=== PATIENT | female | born 1960 | race Caucasian/White ===

== ENCOUNTER 2021-11-07 06:00 | Day surgery (SDC) | payer OTHER ==
[2021-11-07] MEDS ORDERED: Lactated Ringers 1,000 ML IV SCH (06:30)
[2021-11-07] MEDS ORDERED: Xylocaine-Mpf 2% 5 Ml Vial ONE (07:54)
[2021-11-07] MEDS ORDERED: DIPRIVAN 200 MG/20 ML IV ONE (07:54)
[2021-11-07] MEDS ORDERED: ATROPINE SULFATE 1MG ONE (08:16)
[2021-11-07 09:00] VITALS: BP 162/96; PULSE 91; O2SAT 95
--- NOTE | 2021-11-07 11:00 | OP ---
SURGERY DATE/TIME: 11/07/2021 0754 PREOPERATIVE DIAGNOSIS: Screening exam. POSTOPERATIVE DIAGNOSIS: Normal colon. PROCEDURE: Colonoscopy. SURGEON: Dr. Earnest Kirkland. ANESTHESIA: MAC. Medications given by anesthesia department. HISTORY: The patient is a 61-year-old white female presenting now for her first screening colonoscopy. The patient was appraised of the risks of the procedure including the risk of perforation, phlebitis, untoward reaction to medication, bleeding and missed lesions. The patient verbalized her understanding and desired to have the procedure performed. DESCRIPTION OF PROCEDURE: The patient was given the medications by the anesthesia department. She had continuous pulse oximetry, ECG monitoring, intermittent blood pressure monitoring during the examination. She was placed in the left lateral decubitus position. A digital rectal examination was performed and revealed normal anal sphincter tone and no masses. The flexible Olympus pediatric colonoscope was used to intubate the rectum. A view of the colon was developed sequentially to the cecum. Upon insertion and withdrawal, including a retroflex view in the rectum, no mucosal lesions were encountered. The scope was removed from the patient who tolerated the procedure well and was sent back to OP recovery in good condition. The prep was noted to be good.
== END 2021-11-07 09:15 | disposition home or self-care (01) ==
LOC: SDC 06:00
PROVIDERS: ATTEND Family Medicine
DX: Z12.11 Encounter for screening for malignant neoplasm of colon (principal); E11.9 Type 2 diabetes mellitus without complications
CPT/HCPCS: 82947; J0461; J2704

== ENCOUNTER 2022-10-19 18:16 | Emergency (ER) | payer OTHER ==
[2022-10-19 20:07] VITALS: BP 169/97; PULSE 81; RESP 16; TEMP 98.1; O2SAT 96
[2022-10-19] MEDS ORDERED: NORCO 5/325 MG PO ONE (20:31)
[2022-10-19] MEDS ORDERED: NORCO 5/325 MG ONE (20:33)
--- NOTE | 2022-10-19 21:38 | ERPHSYRPT ---
- History of Present Illness Time Seen by Provider: 10/19/22 18:31 Source: patient Exam Limitations: no limitations Patient Subjective Stated Complaint: pt states she twisted her ankle going down stairs and has pain in her rt foot Triage Nursing Assessment: pt alert and oriented. answers questions approp. pt back to room per wheelchair and transfers to stretcher with assistof 1. bruising and swelling noted to rt foot. cap refill and pedal pulse wnl Physician History: 62 years old female with history of hypertension, hyperlipidemia, diabetes mellitus presented in the ER with chief complaint of right foot and ankle pain and swelling after she twisted while going downstairs. Complaining of moderate to severe sharp pain, difficulty weightbearing. Reports increasing swelling especially on the lateral aspect of the foot without any tingling or numbness in the toes. No injury anywhere else. Allergies/Adverse Reactions: No Known Drug Allergies Allergy (Verified 10/19/22 20:07) Home Medications: Amlodipine Besylate/Benazepril [Lotrel 10-40 mg Capsule] 10 - 40 mg PO UD 11/01/21 [History] Aspirin EC 81 mg [Ecotrin 81 mg] 81 mg PO UD 11/01/21 [History] Glimepiride 2 mg [Amaryl 2 MG] 2 mg PO UD 11/01/21 [History] Meloxicam 15 mg [Meloxicam 15 MG] 15 mg PO UD 11/01/21 [History] Simvastatin 10 mg [Zocor 10MG] 10 mg PO DAILY 11/01/21 [History] Tizanidine HCl 4 mg [Zanaflex 4 MG] 4 mg PO UD 11/01/21 [History] Hx Tetanus, Diphtheria Vaccination/Date Given: No (unsure) Hx Influenza Vaccination/Date Given: No Hx Pneumococcal Vaccination/Date Given: No Immunizations Up to Date: No Travel Risk - International Travel Have you traveled outside of the country in past 3 weeks: No - Coronavirus Screening Are you exhibiting any of the following symptoms?: No Close contact with a COVID-19 positive Pt in past 14-21 Days: No - Vaccine Status Have you recieved a Covid-19 vaccination: No - Review of Systems Constitutional: No Symptoms Eyes: No Symptoms Ears, Nose, & Throat: No Symptoms Respiratory: No Symptoms Cardiac: No Symptoms Abdominal/Gastrointestinal: No Symptoms Genitourinary Symptoms: No Symptoms Musculoskeletal: Fall, Injury, Joint Pain Skin: No Symptoms Neurological: No Symptoms Immunological/Allergic: No Symptoms - Past Medical History Pertinent Past Medical History: Yes Neurological History: No Pertinent History ENT History: No Pertinent History Cardiac History: Hypertension Respiratory History: No Pertinent History Endocrine Medical History: Diabetes Type II Musculoskeletal History: No Pertinent History GI Medical History: Irritable Bowel History: No Pertinent History Psycho-Social History: No Pertinent History Female Reproductive Disorders: No Pertinent History Other Medical History: pt reports she had a cardiac work up in 2005 and no heart issue found has not been back since. - Past Surgical History Past Surgical History: Yes Neuro Surgical History: No Pertinent History Cardiac: No Pertinent History Respiratory: No Pertinent History Gastrointestinal: No Pertinent History Genitourinary: No Pertinent History Musculoskeletal: No Pertinent History Female Surgical History: Hysterectomy Other Surgical History: eye reconstruction - Social History Smoking Status: Current every day smoker How long have you smoked: 45yrs Exposure to second hand smoke: No Drug Use: none Patient Lives Alone: No - Nursing Vital Signs Nursing Vital Signs: Initial Vital Signs Temperature 98.1 F 10/19/22 19:59 Pulse Rate 81 10/19/22 19:59 Respiratory Rate 16 10/19/22 19:59 Blood Pressure 169/97 10/19/22 19:59 O2 Sat by Pulse Oximetry 96 10/19/22 19:59 Pain Scale Pain Intensity 10 - Physical Exam General Appearance: no apparent distress, alert Eyes, Ears, Nose, Throat Exam: normal ENT inspection Neck Exam: normal inspection, non-tender, supple, full range of motion Cardiovascular/Respiratory Exam: chest non-tender, normal breath sounds, regular rate/rhythm Gastrointestinal/Abdominal Exam: non-tender, soft, no organomegaly Back Exam: normal inspection, normal range of motion Ankle Exam: right ankle: bone tenderness (Lateral malleolus), limited range of motion, pain, soft tissue tenderness, swelling, left ankle: non-tender, normal i nspection, normal range of motion, no evidence of injury Foot Exam: right foot: bone tenderness (Mid to distal lateral foot), pain, soft tissue tenderness, swelling, left foot: non-tender, normal inspection, normal range of motion, no evidence of injury Neuro/Tendon Exam: normal sensation, normal motor functions, normal tendon functions Mental Status Exam: alert, oriented x 3, cooperative Skin Exam: normal color SpO2 Interpretation: normal SpO2: 96 O2 Delivery: Room Air Ordered Tests: Active Orders 24 hr Category Date Time Status ANKLE (3 VIEWS) Stat Exams 10/19/22 20:25 Taken FOOT (MINIMUM 3 VIEWS) Stat Exams 10/19/22 20:25 Taken Medication Summary Discontinued Medications Generic Name Dose Route Start Last Admin Trade Name Brennan PRN Reason Stop Dose Admin Hydrocodone Bitart/Acetaminophen 2 tab 10/19/22 20:31 10/19/22 20:39 Hydrocodone/Apap 5/325 1 Tab Tablet PO 10/19/22 20:32 2 tab STAT ONE Administration Hydrocodone Bitart/Acetaminophen Confirm 10/19/22 20:33 Hydrocodone/Apap 5/325 1 Tab Tablet Administered 10/19/22 20:34 Dose 2 tab .ROUTE .STK-MED ONE - Progress Progress: improved, pain not gone completely, re-examined Progress Note: 10/19/22 21:35 62 years old female with history of hypertension, hyperlipidemia, diabetes mellitus presented in the ER with chief complaint of right foot and ankle pain and swelling after she twisted while going downstairs. Complaining of moderate to severe sharp pain, difficulty weightbearing. Reports increasing swelling especially on the lateral aspect of the foot without any tingling or numbness in the toes. No injury anywhere else. Patient has swollen right lateral malleolus and right lateral half of foot with bruising. Marked tenderness on the foot. Given [place] for symptomatic relief. X-rays showed fracture of fourth and fifth metatarsal reviewed by me, official report is pending. Placed in a posterior splint, recommended off weightbearing and outpatient podiatry follow-up. Counseled pt/family regarding: diagnosis, need for follow-up, rad results Medical Desision Making - Diagnostic Testing Diagnostic test were ordered, analyzed, and reviewed by me: Yes Radiological Interpretation: Interpreted by me, Reviewed by me - Risk of complications The pt has a mod risk of morbidity or mortality based on: Need for prescription drug management - Departure Departure Disposition: Home Clinical Impression: Foot fracture, right Condition: Stable Critical Care Time: No Referrals: DANAE GIBSON MD [Primary Care Provider] - Follow up/PCP as directed YEVGENIY EDWARDS DPM [ACTIVE STAFF] - Follow up/PCP as directed (Tomorrow for reevaluation) Instructions: Foot Fracture (DC) Additional Instructions: Intermittent ice application. Keep it elevated. Take pain medications as needed. Follow-up with podiatry for reevaluation in 1 to 2 days. Return to ER for any worsening., Bluish discoloration of toes numbness or tingling in the toes etc. Prescriptions: Hydrocodone/Acetaminophen [Hydrocodone-Acetamin 5-325 mg] 1 tab PO Q6HPRN PRN 3 Days #12 tablet MDD 4 PRN Reason: Pain
--- NOTE | 2022-10-20 09:15 | XRAY ---
Indication: Pain following fall. Comparison: None 3 view right ankle demonstrates osteopenia. No other bony, articular, or soft tissue abnormalities. Foot reported separately.
--- NOTE | 2022-10-20 09:15 | XRAY ---
Indication: Pain and swelling following fall. Comparison: None 3 nonweightbearing views right foot demonstrates minimally displaced oblique fractures distal shafts 4th/5th metatarsals with soft tissue swelling. Elsewhere osteopenia and tiny navicular/cuboid accessory ossicles.
== END 2022-10-19 21:50 | disposition home or self-care (01) ==
LOC: ED 18:16
DX: S92.341A Displaced fracture of fourth metatarsal bone, right foot, initial encounter for closed fracture (principal); S92.351A Displaced fracture of fifth metatarsal bone, right foot, initial encounter for closed fracture; X50.0XXA Overexertion from strenuous movement or load, initial encounter; I10 Essential (primary) hypertension; E78.5 Hyperlipidemia, unspecified; E11.9 Type 2 diabetes mellitus without complications; Z79.84 Long term (current) use of oral hypoglycemic drugs; Z79.891 Long term (current) use of opiate analgesic; Z79.899 Other long term (current) drug therapy; Z28.310 Unvaccinated for COVID-19; Z72.0 Tobacco use
CPT/HCPCS: 73610; 73630; 99283; A9270-GY

== ENCOUNTER → 2022-10-27 | Day surgery (SDC) | payer OTHER ==
[~2022-10-27] MED LIST: CEFAZOLIN 2 GM-D5W BAG** 2 GM/50 ML ML IV SCH; DEXMEDETOMIDINE 80 MCG/20ML-NS IV ONE; DIPRIVAN 200 MG/20 ML IV ONE; Lactated Ringers 1,000 ML IV ONE; Lactated Ringers 1,000 ML IV SCH; Marcaine Mpf 0.5% Vial 30 Ml ONE; SUBLIMAZE 100 MCG/2 ML ONE; Versed 2 MG/2 ML Injection ONE; Xylocaine 1% Vial 30 ML PF IJ ONE
[2022-10-27 06:55] VITALS: RESP 18
[2022-10-27 06:56] LABS: Absolute Neutrophil Ct (ANC) 7.32 x10^3/uL (1.4-6.9); BASOPHIL % 0.6 % (0.0-0.4); Basophil (Absolute #) 0.07 x10^3/uL (0-0.4); Eosinophil (Absolute #) 0.23 x10^3/uL (0-0.5); Hematocrit 44.2 % (35-47); Hemoglobin 14.5 g/dL (12.0-16.0); IMMATURE GRAN # 0.06 x10^3u/L (0.00-0.03); IMMATURE GRAN % 0.5 % (0.00-0.4); Lymphocyte (Absolute #) 2.85 x10^3/uL (1.0-4.6); Lymphocytes % 25.4 % (24.0-44.0); Mean Cell Volume 95.3 fL (78-100); Mean Corpuscular Hemoglobin 31.3 pg (26-32); Mean Corpuscular Hgb Concent. 32.8 g/dL (32-36); Monocytes % 6.2 % (0.0-12.0); Neutrophil % 65.3 % (36.0-66.0); PROTIME 10.9 SECONDS (9.4-12.5); PTT 28.6 SECONDS (25.1-36.5); Platelet Count 351 x10^3/uL (150-450); Red Blood Count 4.64 x10^6/uL (4.1-5.4); Red Cell Distribution Width 13.6 % (11.5-14.0); White Blood Count 11.2 x10^3/uL (4.0-10.5)
[2022-10-27 07:45] LABS: ALBUMIN 4.5 g/dL (3.5-5.0); ALKALINE PHOSPHATASE 103 U/L (38-126); ANION GAP 16.1 MEQ/L (5-15); BLOOD UREA NITROGEN 9 mg/dL (7-17); CHLORIDE 105 mmol/L (98-107); Calcium 9.3 mg/dL (8.4-10.2); Carbon Dioxide 26 mmol/L (22-30); EST GLOMERULAR FILTRATION RATE > 60.0 ML/MIN; Glucose 114 mg/dL (74-106); Potassium 3.8 mmol/L (3.5-5.1); SGOT/AST 49 U/L (14-36); SGPT/ALT 48 U/L (0-35); SODIUM 144 mmol/L (137-145); Total Protein 7.6 g/dL (6.3-8.2)
--- NOTE | 2022-10-27 13:53 | XRAY ---
Indication: Right 4th/5th metatarsal ORIF. Intraoperative fluoroscopy provided for 5 minutes 22 seconds. 17 digital spot images submitted for interpretation ultimately demonstrates fixation plate/6 screws fixating 4th metatarsal shaft fracture and 3 screws fixating 5th metatarsal shaft fracture. Correlate with intraoperative findings/report.
--- NOTE | 2022-10-27 14:29 | XRAY ---
5 minutes and 22 seconds of fluoroscopy was used in surgery for a right 4th and 5th metatarsal ORIF.
[2022-10-27 15:21] VITALS: BP 130/69; PULSE 64; TEMP 97; O2SAT 97
--- NOTE | 2022-10-31 09:02 | OP ---
SURGERY DATE: 10/27/2022 SURGERY TIME: 1100 PREOPERATIVE DIAGNOSIS: 1. DISPLACED METATARSAL FRACTURES OF METATARSAL 4 AND 5 OF THE RIGHT FOOT. 2. RIGHT FOOT PAIN. 3. INSTABILITY WITH AMBULATION. POSTOPERATIVE DIAGNOSIS: 1. DISPLACED METATARSAL FRACTURES OF METATARSAL 4 AND 5 OF THE RIGHT FOOT. 2. RIGHT FOOT PAIN. 3. INSTABILITY WITH AMBULATION. PROCEDURE: 1. Open reduction internal fixation of the 4th and 5th metatarsals. SURGEON: Deepak Bolaños D.P.M. TOOL PLANER SET UP OPERATOR: None. ANESTHESIA: MAC with an intraoperative local block. HEMOSTASIS: An ankle tourniquet set to 250 mm Hg for approximately 83 total tourniquet minutes. ESTIMATED BLOOD LOSS: . MATERIALS: 2.5 Y plate with a 2.0 X 12 interfrag and a 2.5 X 14, 2.0 X 14, and 2.0 X 14 headed partially threaded screws for the 5th metatarsal Lauryn; 4-0 Monocryl; 2 suture guards; and 3-0 Nylon. INJECTIBLES: 40 cc of a 1:1 mixture of 1% Lidocaine plain and 0.5% Bupivacaine plain injected in an ankle block type fashion preoperatively. INDICATIONS: Brittney is a very pleasant 62 year-old female who presented to the orthopedic nurse practitioners office on Sunday of with some concerns of fracture. X-rays were taken demonstrating significant comminution of the diaphysis up into the distal metaphysis as well as a displaced metatarsal head at least of the 4th metatarsal of the right foot. Patient indicated that she went to weight-bear, she felt significantly unstable with weight-bearing. As a result, there was some degree of sagittal plane displacement as well as a gap of approximately 6 mm at its widest margins of the distal diaphysis. Options were discussed with the patient in regards to protection for healing. At this time, all risks, complications, and benefits surgical and conservative were discussed and patient agrees to proceed with surgical intervention due to the displacement and the instability with gait that she experienced when attempting to bear weight. As a result, patient understands that the risks in her case given that she is a diabetic albeit controlled and a cigarette smoker is possibly delayed wound healing; delayed bone healing; possible non-union; and possible need for surgical intervention at a later date. Nonspecific to this case, we also discussed the possibility of infection; hematoma; seroma; possibility of nerve damage as a result of the location where the incisions are to be placed as well as the possibility of need for removal of said hardware at a later date. No guarantees were provided as to the outcome of surgical intervention. The patient understands all this and wishes to proceed. Plenty of time was allowed for the patient to ask questions to their apparent satisfaction. From that standpoint, we decided to proceed. OPERATIVE SUMMARY: The patient was brought in to the operating room and placed on the operating room table in the supine position. At this time, MAC anesthesia care was administered until the patient was sedated. The right lower extremity was prepped and draped in the typical sterile fashion and lowered onto the surgical field. At this time, the ankle block was provided and the tourniquet was inflated to 250 mm Hg after [place] the right foot. Following this, a linear incision was carried between the 4th and 5th metatarsals being careful not to damage any neurovascular structures. Blunt dissection was carried down to the level of the 4th metatarsal. Comminution was identified at the 4th metatarsal which was apparently worse than what was imaged initially. From that standpoint, a spanning plate was planned. We spanned the fracture utilizing a 2.5 Y plate having cut down the tines to fit to the patient's specific anatomy and bending the plate into the appropriate orientation. From that standpoint, distal head was fixated and then proximal screws were placed until adequate amount of fixation was performed to hold the fracture site in the appropriate position. As a result, the length was assessed utilizing the contralateral foot to see the patient's typical anatomy and effort was utilized to restore identical metatarsal parabolas. From that standpoint, the 4th metatarsal was fixated and deemed to be in an adequate position with light contact of the bone for adequate healing. From that standpoint, attention was turned to the 5th metatarsal where pointed reduction forceps was utilized to close down the fracture percutaneously. Following this, 3 screws consisting of a 2.5 X 14, a 2.0 X 14, and a 2.0 X 14 headed partially threaded screw were introduced in a perpendicular orientation to the fracture site given the spiral orientation of the fracture. From that standpoint, fluoroscopic images were taken in an AP, oblique, and lateral orientation and deemed to be adequate. The 5th metatarsal head did seem to have some degree of displacement. However, this was easily corrected through closed reduction and was seemingly stable on a lateral view respective to the remainder of the metatarsal. Plating was not performed to the 5th metatarsal. From that standpoint, copious amounts of sterile saline were utilized to flush the surgical site. 4-0 Monocryl was utilized to coapt the subcutaneous edges of the skin. 3-0 Nylon was then utilized to coapt the skin edges in an everted type fashion with a horizontal mattress. Suture guards were then introduced utilizing 2-0 Nylon taking tension off of the surgical site secondary to the swelling. The patient then had a dressing consisting of iodine, Adaptic, 4 X 4, Kerlix, and a well-padded posterior splint with sugar tongue to the right lower extremity. The patient was then reversed from anesthesia and returned to the postoperative anesthesia care unit with vital signs stable and vascular status intact. The patient handled the anesthesia as well as the procedure without significant complication. Postoperative orders as indicated in the patient's discharge chart.
== END ==
LOC: SDC 05:57
PROVIDERS: ATTEND Podiatrist Foot & Ankle Surgery
DX: S92.351A Displaced fracture of fifth metatarsal bone, right foot, initial encounter for closed fracture (principal); S92.341A Displaced fracture of fourth metatarsal bone, right foot, initial encounter for closed fracture; M79.671 Pain in right foot; R26.2 Difficulty in walking, not elsewhere classified; E11.9 Type 2 diabetes mellitus without complications
CPT/HCPCS: 28485; 36415; 73630; 76000; 80053; 82947; 85025; 85610; 85730; C1713; J0690; J2001; J2250; J2704; J3010